=== PATIENT | female | born 1970 | race Caucasian/White ===

== ENCOUNTER 2017-08-15 00:46 | Inpatient (IN) | payer BC ==
[~2017-08-15] VITALS: Ht 160 cm; Wt 93.4 kg
--- NOTE | ~2017-08-15 | EKG ---
[address] [place] [address] ELECTROCARDIOGRAM REPORT Name: KAUSHIK ROLAND Room #: 170-9 ADM IN M.R.#: [id number] Admission: 08/15/17 Attend Phys: Khai Gill DO Discharge: Date of : 70 Report #: [id number] THIS REPORT FOR: //name// [facility] ED Test Date: 2017-08-15 Test Time: 00:49:57 Pat Name: KAUSHIK ROLAND Department: Room: 170 Gender: F [employer] Torch: SLIM : 1970 Requested By: Ramos Gabriel Order Number: [id number] MD: Gavino Osorio Measurements Intervals [place] Rate: 124 P: 220 [place]: 73 QRS: 7 QRSD: 143 T: 84 QT: 388 QTc: 558 Interpretive Statements Sinus or ectopic atrial tachycardia Left bundle branch block Baseline wander in lead(s) V1,V4,V5 No previous ECG available for comparison Electronically Signed On 08-15-2017 8:02:56 TALENT DEVELOPMENT DIRECTOR by Gavino Osorio [email or web address] <ELECTRONICALLY SIGNED> By: Gavino Osorio MD, [facility] 08/15/17 0802 0049 0049 Gavino Osorio MD, [facility] /EPI
--- NOTE | ~2017-08-15 | HC ---
[facility] [place] [address] CONSULTATION Name: KAUSHIK ROLAND Room #: 349-I [facility] IN .R.#: [id number] Admission: 08/15/17 Attend Phys: Jose Zaragoza MD Discharge: 08/17/17 Date of : 70 Report #: [id number] THIS REPORT FOR: //name// CC: Khai Nuñez REFERRING PHYSICIAN: Dr. Gill. REASON FOR REFERRAL: Dyspnea and cough. HISTORY OF PRESENT ILLNESS: The patient is a 47-year-old white female who presented to the Emergency Room with progressive cough and intermittent chest pains. A pulmonary consultation was requested. The patient states that she has been short of breath for the past 2 months. Over time, symptoms have progressively worsened when she started to develop productive cough of purulent sputum. She was seen by primary care 2 weeks prior to presentation. Influenza screen was negative. She was given antibiotics at that time. Symptoms improved somewhat only to recur when she is off the antibiotics. Otherwise, denies any nausea, vomiting, diarrhea, hematemesis, hematochezia or melena. PAST MEDICAL HISTORY: Notable for early onset diabetes mellitus type 2, ____ and gastroesophageal reflux disease. She has osteoarthritis. PAST SURGICAL HISTORY: Include prior ankle surgery, partial hysterectomy, tonsillectomy and adenoidectomy. ALLERGIES: None to medications. HOME MEDICATIONS: Include Lipitor, Prilosec, Glucophage, Mobic and trazodone. FAMILY HISTORY: Notable for heart disease, CVA along with valvular cardiomyopathy. SOCIAL HISTORY: She smokes about less than a pack a day. She has done so most of her life. She is an active smoker and drinks occasionally. REVIEW OF SYSTEMS: As mentioned above, otherwise 10-point system review negative. PHYSICAL EXAMINATION: GENERAL: She is awake, alert, in mild distress. VITAL SIGNS: Temperature is 98 degrees Fahrenheit, pulse is 100, respiratory [facility] [address] [place] [address] CONSULTATION Name: KAUSHIK ROLAND Room #: 349-I [facility] IN [facility]#: [id number] Admission: 08/15/17 Attend Phys: Jose Zaragoza MD Discharge: 08/17/17 Date of : 70 Report #: [id number] rate is 20, blood pressure 117/74 mmHg and saturation 96%. HEENT: Normocephalic and atraumatic. NECK: Supple, no lymphadenopathy or thyromegaly. CHEST: Breath sounds are fair with bilateral crackles. No wheezes. CARDIOVASCULAR: Normal S1 and S2. There are no murmurs or gallop. There is no JVD, no carotid bruit. Pulses are 2+/4+ bilaterally. ABDOMEN: Soft and nontender. No organomegaly or masses felt. GENITOURINARY: Deferred. RECTAL: Deferred. EXTREMITIES: There is trace edema. No cyanosis or clubbing. LABORATORY DATA: Portable chest x-ray shows bilateral ground glass opacity with mild increase in interstitial markings. Septal thickening is also noted. No evidence of pulmonary embolus. Echocardiogram showed normal LV function, ejection fraction of 55-60%. Pulmonary pressure is around 46 mmHg. No significant valvular heart disease. Lactic acid 6.2. Influenza A and B antigens are negative. EKG shows left bundle branch block. WBC 15,200, hemoglobin 12.5 and platelets are normal. Electrolytes are normal. Troponin is normal. IMPRESSION: 1. Bilateral pulmonary infiltrates in this 47-year-old white female. She has been symptomatic for the past 2 months. She has a cough productive of yellowish sputum. She is hypoxic requiring supplemental O2. Echocardiogram is noted. Radiographic appearance suggests possible heart failure, possible atypical pneumonia. 2. Bilateral infiltrates as mentioned above. We will treat for presumed pneumonia, would also consider atypical infectious process. 3. Mild lactic acidosis due to pneumonia, severe sepsis. 4. Tobacco abuse. The patient does not have a history of chronic lung disease, but certainly is possible. RECOMMENDATIONS: Agree plans. We will treat for presumed community-acquired pneumonia with broad-spectrum antibiotics. We will recommend at least 7-10 days of total antibiotic therapy. Wean O2 for saturation 90%. DVT and GI prophylaxis recommended. Smoking cessation is recommended. When stable as an outpatient, would recommend pulmonary evaluation and PFTs. Thank you for this consultation. <ELECTRONICALLY SIGNED> By: Freddy Pace MD 08/20/17 1409 1523 2318 Freddy Pace MD /nt
--- NOTE | ~2017-08-15 | EKG ---
[address] [place] [address] ELECTROCARDIOGRAM REPORT Name: KAUSHIK ROLAND Room #: 349-I ADM IN M.R.#: [id number] Admission: 08/15/17 Attend Phys: Jose Zaragoza MD Discharge: Date of : 70 Report #: [id number] THIS REPORT FOR: //name// [facility] Test Date: 2017-08-15 Test Time: 16:52:07 Pat Name: KAUSHIK ROLAND Department: Room: 349 Gender: F Instructional Facilitator: Shadi ASCENCIO : 1970 Requested By: Torie Bhagat Order Number: [id number] MD: Gavino Osorio Measurements Intervals [place] Rate: 103 P: 63 [place]: 159 QRS: 0 QRSD: 146 T: 139 QT: 416 QTc: 545 Interpretive Statements Sinus tachycardia Left bundle branch block Compared to ECG 08/15/2017 00:49:57 No significant changes Electronically Signed On 08-16-2017 8:11:28 DIRECTOR OF PURCHASING by Gavino Osorio [email or web address] <ELECTRONICALLY SIGNED> By: Gavino Osorio MD, [facility] 08/16/17 0811 165 51 Gavino Osorio MD, [facility] /EPI
--- NOTE | ~2017-08-15 | 2DMMODE ---
[facility] [address] [place] [address] 2 D/M-MODE ECHOCARDIOGRAM Name: KAUSHIK ROLAND Room #: 170-9 ADM IN ..#: [id number] Admission: 08/15/17 Attend Phys: Khai Gill, Discharge: Date of : 70 Date of Service: 08/15/17 1114 Report #: [id number] THIS REPORT FOR: //name// APPROVED REPORT Study performed: 08/15/2017 09:46:32 EXAM: Comprehensive 2D, Doppler, and color-flow Echocardiogram Patient Location: ER Room #: 14 Status: routine BSA: 1.96 HR: 100 bpm BP: 117/74 mmHg Other Information Study Quality: Adequate Indications Dyspnea Cardiomegaly Echo Enhancing Agent Indication: Rule out Shunt Agent(s) / Amount(s) Used: Agitated Saline 6 cc 2D Dimensions RVDd: 33.07 mm LVEF(%): 54.63 (>50%) IVSd: 13.09 (7-11mm) LVOT Diam: 19.55 (18-24mm) LVDd: 46.32 mm PWd: 11.25 (7-11mm) Ascending Ao: 31.44 (22-36mm) LVDs: 33.23 (25-40mm) Aortic Root: 28.89 mm Sanchez's LVEF: 54.63 % Volumes Left Atrial Volume (Systole) Single Plane 4CH: 37.24 mL Single Plane 2CH: 49.73 mL LA ESV Index: 23.00 mL/m2 Aortic Valve AoV Peak Angel.: 1.99 m/s AO Peak Gr.: 15.85 mmHg LVOT Max P.13 mmHg LVOT Max V: 1.34 m/s SINDHU Vmax: 2.01 cm2 [facility] [place] [address] 2 D/M-MODE ECHOCARDIOGRAM Name: KAUSHIK ROLAND Room #: 1709 [facility] IN ..#: [id number] Admission: 08/15/17 Attend Phys: Khai Gill, Discharge: Date of : 70 Date of Service: 08/15/17 1114 Report #: [id number] Mitral Valve MV Decel. Time: 155.93 ms MV E Max Angel.: 1.44 m/s IVRT: 51.90 ms Pulmonary Valve PV Peak Angel.: 1.49 m/s PV Peak Gr.: 8.91 mmHg Tricuspid Valve TR Peak Angel.: 3.20 m/s RAP Estimate: 5.00 mmHg TR Peak Gr.: 40.92 mmHg PA Pressure: 46.00 mmHg Left Ventricle The left ventricle is normal size. Mild concentric left ventricular hypertrophy. The left ventricular systolic function is normal. The left ventricular ejection fraction is within the normal range. LVEF is 55-60%. This study is not technically sufficient to allow evaluation of the LV diastolic function. Right Ventricle The right ventricle is normal size. The right ventricular systolic function is normal. Atria The left atrium size is normal. No shunting by contrast bubble injection. The right atrium size is normal. Aortic Valve Aortic valve is calcified. Trace aortic regurgitation. There is no aortic valvular stenosis. Mitral Valve The mitral valve is normal in structure. Mild mitral regurgitation. No evidence of mitral valve stenosis. Tricuspid Valve The tricuspid valve is normal in structure. Trace to mild tricuspid regurgitation. Estimated PAP 46 mmHg. Pulmonic Valve The pulmonary valve is normal in structure. There is no pulmonic valvular regurgitation. Great Vessels [facility] [address] [place] [address] 2 D/M-MODE ECHOCARDIOGRAM Name: KAUSHIK ROLAND Room #: 170-9 ADM IN .R.#: [id number] Admission: 08/15/17 Attend Phys: Khai Gill, Discharge: Date of : 70 Date of Service: 08/15/17 1114 Report #: [id number] The aortic root is normal in size. The ascending aorta is normal in size. IVC is normal in size and collapses >50% with inspiration. Pericardium No pericardial effusion. <Conclusion> The left ventricle is normal size. LVEF is 55-60%. The right ventricle is normal size. Aortic valve is calcified. Trace aortic regurgitation. There is no aortic valvular stenosis. The mitral valve is normal in structure. Mild mitral regurgitation. The tricuspid valve is normal in structure. Trace to mild tricuspid regurgitation. Estimated PAP 46 mmHg. The pulmonary valve is normal in structure. No shunting by contrast bubble injection. No pericardial effusion. <ELECTRONICALLY SIGNED> By: Gualberto Rangel MD 08/15/17 1114 1114 111 Gualberto Rangel MD /INF
[2017-08-15 00:47] VITALS: BP 149/85
[2017-08-15 01:12] LABS: ABSOLUTE NEUTROPHILS 11.1 thou/uL (1.4-8.2); BASOPHILS 0.4 % (0.0-2.0); EOSINOPHILS 1.8 % (0.0-3.0); HEMATOCRIT 37.4 % (37.0-47.0); HEMOGLOBIN 12.5 gm/dL (12.0-15.0); LYMPHOCYTES 21.8 % (24.0-44.0); MCH 30.4 pg (26.0-34.0); MCHC 33.3 g/dL (28.0-37.0); MCV 91.2 fL (80.0-100.0); MONOCYTES 2.5 % (1.0-8.0); PLATELET COUNT 283 thou/uL (150-400); POLYS 73.5 % (36.0-66.0); RDW 14.1 % (10.5-14.5); WBC 15.2 thou/uL (4.0-11.0)
[2017-08-15 01:16] LABS: ANION GAP 16 mmol/L (7-16); BUN 19 mg/dL (7-18); CALCIUM 8.8 mg/dL (8.5-10.1); CHLORIDE 104 mmol/L (98-107); CO2 20 mmol/L (21-32); GLUCOSE 275 mg/dL (74-106); POTASSIUM 3.9 mmol/L (3.5-5.1); SODIUM 140 mmol/L (136-145)
[2017-08-15] MEDS ORDERED: METFORMIN HCL500 MG PO (01:17)
[2017-08-15] MEDS ORDERED: PRILOSEC 10MG C10 MG PO (01:17)
[2017-08-15] MEDS ORDERED: TRAZODONE HCL100 MG PO (01:18)
[2017-08-15] MEDS ORDERED: MOBIC7.5 MG PO (01:18)
[2017-08-15 01:25] LABS: TROPONIN-I < 0.04 ng/mL (<0.06)
[2017-08-15] MEDS ORDERED: ATORVASTATIN CA40 MG PO (03:53)
[2017-08-15 09:29] VITALS: BP 117/74
[2017-08-15 11:02] VITALS: BP 119/65
[2017-08-15 16:23] LABS: BE(vivo) -3.5 mmol/L (-2 to +3); HCO3 20.7 mmol/L (22.0-26.0); PCO2 34.5 mmHg (35.0-45.0); PO2 84.8 mmHg (80.0-100.0); pH 7.396 (7.360-7.450); sO2 96.5 % (92.0-98.0)
[2017-08-15 19:20] VITALS: BP 129/75
[2017-08-16 03:40] VITALS: BP 121/80
[2017-08-16 05:59] LABS: HEMATOCRIT 28.8 % (37.0-47.0); MCH 30.7 pg (26.0-34.0); MCHC 33.6 g/dL (28.0-37.0); MCV 91.5 fL (80.0-100.0); RBC 3.15 mil/uL (4.20-5.00); RDW 14.2 % (10.5-14.5); WBC 11.4 thou/uL (4.0-11.0)
[2017-08-16 06:12] LABS: CALCIUM 8.7 mg/dL (8.5-10.1); CREATININE 0.7 mg/dL (0.6-1.0); HEMOGLOBIN 9.7 gm/dL (12.0-15.0); POTASSIUM 3.8 mmol/L (3.5-5.1)
[2017-08-16 08:00] VITALS: BP 114/75
[2017-08-16 11:05] VITALS: BP 137/84
[2017-08-16 20:00] VITALS: BP 127/74
[2017-08-17 04:00] VITALS: BP 143/95
[2017-08-17 07:31] VITALS: BP 135/79
[2017-08-17] MEDS ORDERED: AZITHROMYCIN250 MG PO (08:50)
[2017-08-17] MEDS ORDERED: PREDNISONE 10 M10 MG PO (08:50)
[2017-08-17] MEDS ORDERED: CEFUROXIME500 MG PO (08:50)
[2017-08-17 10:12] VITALS: BP 135/79
[2017-08-21 00:06] LABS: ADENOVIRUS Negative (Negative); INFLUENZA A Negative (Negative); INFLUENZA B Negative (Negative); METAPNEUMOVIRUS Negative (Negative); PARAINFLUENZA 1 Negative (Negative); PARAINFLUENZA 2 Negative (Negative); PARAINFLUENZA 3 Negative (Negative); RHINOVIRUS Negative (Negative); RSV A Negative (Negative); RSV B Negative (Negative)
== END 2017-08-17 11:16 | disposition home or self-care (01) | DRG 871 ==
LOC: ER 00:46 → 3W 02:58 → EROBS 02:58 → 3W 15:06 → ENTRNSPT 08-17 11:09 → EDTRNSPTSTS 08-17 11:12 → 3W 08-17 11:16
PROVIDERS: Emergency Medicine; Internal Medicine Pulmonary Disease; Nurse Practitioner Family
DX: A41.9 Sepsis, unspecified organism (principal); J18.9 Pneumonia, unspecified organism; J96.01 Acute respiratory failure with hypoxia; R65.20 Severe sepsis without septic shock; E78.5 Hyperlipidemia, unspecified; E11.9 Type 2 diabetes mellitus without complications; G47.00 Insomnia, unspecified; F17.210 Nicotine dependence, cigarettes, uncomplicated; Z90.711 Acquired absence of uterus with remaining cervical stump; Z82.49 Family history of ischemic heart disease and other diseases of the circulatory system; Z82.3 Family history of stroke; Z99.81 Dependence on supplemental oxygen; Z79.899 Other long term (current) drug therapy
CPT/HCPCS: 10879